=== PATIENT | female | born 1975 | race African-American/Black ===

== ENCOUNTER 2016-10-02 22:32 | Emergency (ER) | payer MEDICAID, OTHER ==
[~2016-10-02] VITALS: Ht 170.2 cm; Wt 90.9 kg
[~2016-10-02 22:32] MED LIST: ALBU8HFA4 IH; DIVA500T69 PO; QUET200T PO; QUET50TA PO; ROSU5TAB3 PO
[2016-10-02] MEDS ORDERED: HYDR25TA PO (22:39)
[2016-10-02] MEDS ORDERED: ATOR20TA86 PO (22:39)
[2016-10-02 22:52] LABS: GLUCOSE,POINT OF CARE 93 MG/DL (70-110)
[2016-10-02] MEDS ORDERED: OxyCODONE HCL/ACETAMINOPHEN 5-325 MG TABLET PO ONE (23:15)
[2016-10-02] MEDS ORDERED: BUPIVACAINE HCL/PF 0.25% 10 ML VIAL INJ ONE (23:45)
[2016-10-03] MEDS ORDERED: ONDANSETRON HCL 4 MG/2 ML VIAL IM ONE (00:15)
[2016-10-03 00:38] VITALS: BP 143/89
== END 2016-10-03 01:01 | disposition home or self-care (01) ==
LOC: EMS 22:34
DX: K04.7 Periapical abscess without sinus (principal); J45.909 Unspecified asthma, uncomplicated; E11.9 Type 2 diabetes mellitus without complications; I10 Essential (primary) hypertension; E78.00 Pure hypercholesterolemia, unspecified; F12.90 Cannabis use, unspecified, uncomplicated; F17.210 Nicotine dependence, cigarettes, uncomplicated; Z88.5 Allergy status to narcotic agent; Z88.8 Allergy status to other drugs, medicaments and biological substances
CPT/HCPCS: 41800; 82962; 96372; 99284; J2405; J3490